=== PATIENT | female | born 1975 | race Caucasian/White ===

== ENCOUNTER 2022-06-28 11:23 | Inpatient (IN) | payer BC ==
[2022-06-28] MEDS ORDERED: SODIUM CHLORIDE 0.9% 500 ML 500 ML IV STA (12:29)
[2022-06-28] MEDS ORDERED: SODIUM CHLORIDE 0.9% 1,000 ML IV STA (12:29)
[2022-06-28 12:53] LABS: Basophils # (A) 0.1 k/uL (0-0.2); Basophils % (A) 0 %; Eosinophils # (A) 0.2 k/uL (0-0.7); Eosinophils % (A) 1 %; HCT 37.1 % (34.0-46.0); HGB 12.1 gm/dL (11.4-16.0); Hypochromasia Slight; Lymphocytes # (A) 1.7 k/uL (1.0-4.8); Lymphocytes % (A) 9 %; MCH 26.4 pg (25.0-35.0); MCHC 32.5 g/dL (31.0-37.0); MCV 81.2 fL (80.0-100.0); Mean Platelet Volume 8.7; Monocytes # (A) 1.3 k/uL (0-1.0); Monocytes % (A) 7 %; Neutrophils # (A) 15.4 k/uL (1.3-7.7); Neutrophils % (A) 81 %; Platelet Count 236 k/uL (150-450); RBC 4.57 m/uL (3.80-5.40); RDW 14.1 % (11.5-15.5)
[2022-06-28 13:07] LABS: Appearance,Urine Cloudy (Clear); Bacteria,Urine Moderate /hpf; Bilirubin,Urine Negative (Negative); Blood,Urine Small (Negative); Color,Urine Yellow; Glucose,Urine (UA) Negative (Negative); Hyaline Casts,Urine 24 /lpf (0-2); Ketones,Urine Negative (Negative); Leukocyte Esterase,Urine Negative (Negative); Mucus,Urine Many /hpf; Nitrite,Urine Negative (Negative); Protein,Urine 1+ (Negative); RBC,Urine 2 /hpf (0-5); Specific Gravity,Urine 1.024 (1.001-1.035); Squamous Epithelial Cell,Urine 2 /hpf (0-4); Urobilinogen,Urine <2.0 mg/dL (<2.0); WBC,Urine 4 /hpf (0-5)
[2022-06-28 13:09] LABS: ALT 17 U/L (4-34); AST 31 U/L (14-36); African American GFR (CKD) >90 (>60 ml/min/1.73 sqM); Albumin 4.2 g/dL (3.5-5.0); Alkaline Phosphatase 57 U/L (38-126); Amylase 30 U/L (30-110); Anion Gap 9 mmol/L; Blood Urea Nitrogen 7 mg/dL (7-17); Calcium 8.3 mg/dL (8.4-10.2); Carbon Dioxide 21 mmol/L (22-30); Chloride 106 mmol/L (98-107); Glucose 125 mg/dL (74-99); Lipase 35 U/L (23-300); Non-African American GFR(CKD) >90 (>60 ml/min/1.73 sqM); Sodium 136 mmol/L (137-145); Total Bilirubin 1.4 mg/dL (0.2-1.3); Total Protein 7.7 g/dL (6.3-8.2)
[2022-06-28 13:10] LABS: Potassium 4.3 mmol/L (3.5-5.1)
--- NOTE | 2022-06-28 14:05 | CT ---
EXAMINATION TYPE: CT abdomen pelvis w con CT DLP: 2207.8 mGycm, Automated exposure control for dose reduction was used. DATE OF EXAM: 06/28/2022 1:45 PM COMPARISON: None. CLINICAL INDICATION:Female, 47 years old with history of Recent diverticulitis with perforation; h/o diverticulitis left side pain TECHNIQUE: Standard CT of the abdomen and pelvis following the administration of 100 cc of Isovue 3 00 IV contrast material. Coronal and sagittal reformats were performed. FINDINGS: LOWER CHEST: Unremarkable ABDOMEN LIVER: Unremarkable GALLBLADDER AND BILE DUCTS: The gallbladder is surgically absent. No biliary duct dilatation. PANCREAS: Unremarkable. SPLEEN: Mild splenomegaly measuring 14.4 cm in AP dimension. ADRENAL GLANDS: Unremarkable. KIDNEYS AND URETERS: No evidence of hydronephrosis or renal calculus. The kidneys enhance symmetrical ly. PELVIS BLADDER: Incompletely distended but grossly unremarkable. REPRODUCTIVE: Unremarkable anteverted uterus. Haziness with surrounding fat stranding involving the l eft ovary which is likely reactive to the diverticulitis. ABDOMEN & PELVIS STOMACH AND BOWEL: Stomach and duodenum are unremarkable. There is wall thickening with surrounding f at stranding involving the sigmoid colon and single focus of extraluminal paracolonic gas (series 201 , image 69). Questionable small diverticula of the sigmoid colon. No definitive pericolonic abscess. The appendix is within normal limits. No evidence of bowel obstruction. PERITONEUM: No evidence of free fluid. VASCULATURE: No evidence of aortic aneurysm. MUSCULOSKELETAL: No acute osseous abnormalities LYMPH NODES: No gross evidence for lymphadenopathy. SOFT TISSUE/ABDOMINAL WALL: Unremarkable IMPRESSION: 1. Acute sigmoid diverticulitis/colitis with focal contained perforation. No definitive paracolic ab scess. 2. Mild splenomegaly. Findings called to and discussed with Dr. Elijah Dewitt at 2:01 PM on 06/28/2022.
[2022-06-28] MEDS ORDERED: metroNIDAZOLE-NS PMX 500 MG in SALINE 1 100ML.BAG IVPB STA (14:06)
[2022-06-28] MEDS ORDERED: LEVOFLOXACIN 750MG-D5W PMX 750 MG in DEXTROSE/WATER 1 150ML.BAG IVPB STA (14:06)
[2022-06-28] MEDS ORDERED: ONDANSETRON 4 MG/2 ML VIAL IVP PRN (14:14)
[2022-06-28] MEDS ORDERED: NALOXONE 0.4 MG/ML 1 ML VIAL IV PRN (14:14)
[2022-06-28] MEDS ORDERED: HYDROmorphone 0.5 MG/0.5 ML SYRINGE IVP PRN (14:14)
--- NOTE | 2022-06-28 14:14 | ED ---
Abdominal Pain HPI - General Chief Complaint: Abdominal Pain Stated Complaint: Diverticulitis Time Seen by Provider: 06/28/22 12:06 Source: patient, RN notes reviewed Mode of arrival: ambulatory Limitations: no limitations - History of Present Illness Initial Comments: 47-year-old female presents emergency Department chief complaint of abdominal pain. Patient states that it started in left lower quadrant. Patient does admit that several months ago she had an infection diverticulitis which was hospitalized for. Patient states pain started last couple days the pain is getting worse. Patient admits slight nausea and diarrhea. States that she did not eat much last 24 hours. - Related Data Home Medications Medication Instructions Recorded Confirmed Multivitamins, Thera [Multivitamin 1 tab PO DAILY 06/28/22 06/28/22 (formulary)] Allergies Allergy/AdvReac Type Severity Reaction Status Date / Time amoxicillin [From Augmentin] Allergy Rash/Hives Verified 06/28/22 13:04 clavulanic acid Allergy Rash/Hives Verified 06/28/22 13:04 [From Augmentin] cookie Allergy Swelling Verified 06/28/22 13:04 mouth & mouth sores Review of Systems ROS Statement: Those systems with pertinent positive or pertinent negative responses have been documented in the HPI. ROS Other: All systems not noted in ROS Statement are negative. Past Medical History Additional Past Medical History / Comment(s): diverticulits History of Any Multi-Drug Resistant Organisms: None Reported Additional Past Surgical History / Comment(s): perferated diverticuli Past Psychological History: No Psychological Hx Reported Smoking Status: Never smoker Past Alcohol Use History: Occasional Past Drug Use History: None Reported General Exam Limitations: no limitations General appearance: alert, in no apparent distress Head exam: Present: atraumatic, normocephalic, normal inspection Eye exam: Present: normal appearance, PERRL, EOMI. Absent: scleral icterus, conjunctival injection, periorbital swelling ENT exam: Present: normal exam, mucous membranes moist Neck exam: Present: normal inspection, full ROM. Absent: tenderness, meningismus, lymphadenopathy Respiratory exam: Present: normal lung sounds bilaterally. Absent: respiratory distress, wheezes, rales, rhonchi, stridor Cardiovascular Exam: Present: regular rate, normal rhythm, normal heart sounds. Absent: systolic murmur, diastolic murmur, rubs, gallop, clicks GI/Abdominal exam: Present: soft, tenderness (Moderate left lower quadrant), normal bowel sounds. Absent: distended, guarding, rebound, rigid Course Vital Signs 06/28/22 11:48 Temperature 98.4 F Pulse Rate 86 Respiratory 17 Rate Blood Pressure 131/84 O2 Sat by Pulse 99 Oximetry Medical Decision Making - Medical Decision Making CT interpreted by me and read by radiologist shows evidence of contain perforation of diverticulitis. I did discuss the case with Dr. Mayen who accepts admission started on IV antibiotics IV fluids pain control antiemetics. - Lab Data Result diagrams: 06/28/22 12:41 06/28/22 12:41 Lab Results 06/28/22 06/28/22 06/28/22 Range/Units 12:41 12:41 12:41 WBC 19.0 H (3.8-10.6) k/uL RBC 4.57 (3.80-5.40) m/uL Hgb 12.1 (11.4-16.0) gm/dL Hct 37.1 (34.0-46.0) % MCV 81.2 (80.0-100.0) fL MCH 26.4 (25.0-35.0) pg MCHC 32.5 (31.0-37.0) g/dL RDW 14.1 (11.5-15.5) % Plt Count 236 (150-450) k/uL MPV 8.7 Neutrophils % 81 % Lymphocytes % 9 % Monocytes % 7 % Eosinophils % 1 % Basophils % 0 % Neutrophils # 15.4 H (1.3-7.7) k/uL Lymphocytes # 1.7 (1.0-4.8) k/uL Monocytes # 1.3 H (0-1.0) k/uL Eosinophils # 0.2 (0-0.7) k/uL Basophils # 0.1 (0-0.2) k/uL Hypochromasia Slight Sodium 136 L (137-145) mmol/L Potassium 4.3 (3.5-5.1) mmol/L Chloride 106 (98-107) mmol/L Carbon Dioxide 21 L (22-30) mmol/L Anion Gap 9 mmol/L BUN 7 (7-17) mg/dL Creatinine 0.51 L (0.52-1.04) mg/dL Est GFR (CKD-EPI)AfAm >90 (>60 ml/min/1.73 sqM) Est GFR (CKD-EPI)NonAf >90 (>60 ml/min/1.73 sqM) Glucose 125 H (74-99) mg/dL Plasma Lactic Acid Ant 0.9 (0.7-2.0) mmol/L Calcium 8.3 L (8.4-10.2) mg/dL Total Bilirubin 1.4 H (0.2-1.3) mg/dL AST 31 (14-36) U/L ALT 17 (4-34) U/L Alkaline Phosphatase 57 (38-126) U/L Total Protein 7.7 (6.3-8.2) g/dL Albumin 4.2 (3.5-5.0) g/dL Amylase 30 (30-110) U/L Lipase 35 (23-300) U/L Urine Color Urine Appearance (Clear) Urine pH (5.0-8.0) Ur Specific [place] (1.001-1.035) Urine Protein (Negative) Urine Glucose (UA) (Negative) Urine Ketones (Negative) Urine Blood (Negative) Urine Nitrite (Negative) Urine Bilirubin (Negative) Urine Urobilinogen (<2.0) mg/dL Ur Leukocyte Esterase (Negative) Urine RBC (0-5) /hpf Urine WBC (0-5) /hpf Ur Squamous Epith Cells (0-4) /hpf Urine Bacteria (None) /hpf Hyaline Casts (0-2) /lpf Urine Mucus (None) /hpf 06/28/ Range/Units 12:41 WBC (3.8-10.6) k/uL RBC (3.80-5.40) m/uL Hgb (11.4-16.0) gm/dL Hct (34.0-46.0) % MCV (80.0-100.0) fL MCH (25.0-35.0) pg MCHC (31.0-37.0) g/dL RDW (11.5-15.5) % Plt Count (150-450) k/uL MPV Neutrophils % % Lymphocytes % % Monocytes % % Eosinophils % % Basophils % % Neutrophils # (1.3-7.7) k/uL Lymphocytes # (1.0-4.8) k/uL Monocytes # (0-1.0) k/uL Eosinophils # (0-0.7) k/uL Basophils # (0-0.2) k/uL Hypochromasia Sodium (137-145) mmol/L Potassium (3.5-5.1) mmol/L Chloride (98-107) mmol/L Carbon Dioxide (22-30) mmol/L Anion Gap mmol/L BUN (7-17) mg/dL Creatinine (0.52-1.04) mg/dL Est GFR (CKD-EPI)AfAm (>60 ml/min/1.73 sqM) Est GFR (CKD-EPI)NonAf (>60 ml/min/1.73 sqM) Glucose (74-99) mg/dL Plasma Lactic Acid Ant (0.7-2.0) mmol/L Calcium (8.4-10.2) mg/dL Total Bilirubin (0.2-1.3) mg/dL AST (14-36) U/L ALT (4-34) U/L Alkaline Phosphatase (38-126) U/L Total Protein (6.3-8.2) g/dL Albumin (3.5-5.0) g/dL Amylase (30-110) U/L Lipase (23-300) U/L Urine Color Yellow Urine Appearance Cloudy H (Clear) Urine pH 6.0 (5.0-8.0) Ur Specific [place] 1.024 (1.001-1.035) Urine Protein 1+ H (Negative) Urine Glucose (UA) Negative (Negative) Urine Ketones Negative (Negative) Urine Blood Small H (Negative) Urine Nitrite Negative (Negative) Urine Bilirubin Negative (Negative) Urine Urobilinogen <2.0 (<2.0) mg/dL Ur Leukocyte Esterase Negative (Negative) Urine RBC 2 (0-5) /hpf Urine WBC 4 (0-5) /hpf Ur Squamous Epith Cells 2 (0-4) /hpf Urine Bacteria Moderate H (None) /hpf Hyaline Casts 24 H (0-2) /lpf Urine Mucus Many H (None) /hpf Disposition Clinical Impression: Perforation of sigmoid colon due to diverticulitis Disposition: ADMITTED IP TO THIS HOSP Condition: Fair Referrals: Jigar Dumont MD [Primary Care Provider] - 1-2 days Time of Disposition: 14:03
[2022-06-28] MEDS: SODIUM CHLORIDE 0.9% 1,000 ML IV SCH ×2 (14:37→20:19)
--- NOTE | 2022-06-28 15:51 | P.GSHP ---
History of Present Illness H&P Date: 06/28/22 CHIEF COMPLAINT: Left lower quadrant abdominal pain HISTORY OF PRESENT ILLNESS: This is a 47-year-old female who presented with left lower quadrant abdominal pain that started Monday evening. Patient does have a known history of diverticulitis with previous perforation 8 months ago. She was hospitalized at [facility]. She received antibiotics. No surgical intervention was warranted. She had a colonoscopy in December that did show diverticulosis. Patient reports that again she had similar pain as her previous episodes of diverticulitis. She put herself on clear liquids. However pain continued. Computed tomography scan of the abdomen and pelvis shows diverticulitis with contained focal perforation. White count elevated at 19. She denies any fevers. Past surgical history includes cholecystectomy and C- section. Patient seen and examined with Dr. alcantara PAST MEDICAL HISTORY: See below PAST SURGICAL HISTORY: See below MEDICATIONS: See below ALLERGIES: See below SOCIAL HISTORY: No illicit drug use. REVIEW OF SYSTEMS: CONSTITUTIONAL: Denies fever or chills. HEENT: Denies blurred vision, vision changes, or eye pain. Denies hemoptysis CARDIOVASCULAR: Denies chest pain or pressure. RESPIRATORY: No shortness of breath. GASTROINTESTINAL: See HPI for pertinent findings HEMATOLOGIC: Denies bleeding disorders. GENITOURINARY: Denies any blood in urine or increased urinary frequency. SKIN: Denies pruitis. Denies rash. PHYSICAL EXAM: VITAL SIGNS: Reviewed GENERAL: Well-developed in no acute distress. HEENT: No sclera icterus. Extraocular movements grossly intact. Moist buccal mucosa. Head is atraumatic, normocephalic. No nasal drainage. ABDOMEN: Soft. Nondistended. Tenderness to palpation left lower quadrant NEUROLOGIC: Alert and oriented. Cranial nerves II through XII grossly intact. LABORATORY DATA: WBC is 19 Hgb 12.1 platelets 236 Sodium is 136 potassium 4.3 creatinine 0.51 Lactic acid 0.9 total bili 1.4 AST 31 ALT 17 alk phos 57 lipase 35 IMAGING: Computed tomography scan abdomen and pelvis acute sigmoid diverticulitis/colitis with focal contained perforation. No definitive paracolic abscess. Mild splenomegaly. ASSESSMENT: 1. Acute sigmoid diverticulitis with focal contained perforation PLAN: -Keep patient nothing by mouth -Continue IV antibiotics -Continue IV fluids -Repeat CBC in a.m. -Continue supportive care -Continue pain medication as needed -GI prophylaxis Protonix and DVT prophylaxis subcu heparin Physician Non Acoustic Operator note has been reviewed by physician. Signing provider agrees with the documented findings, assessment, and plan of care. Past Medical History Additional Past Medical History / Comment(s): diverticulits History of Any Multi-Drug Resistant Organisms: None Reported Additional Past Surgical History / Comment(s): perferated diverticuli Past Psychological History: No Psychological Hx Reported Smoking Status: Never smoker Past Alcohol Use History: Occasional Past Drug Use History: None Reported Medications and Allergies Home Medications Medication Instructions Recorded Confirmed Type Multivitamins, Thera [Multivitamin 1 tab PO DAILY 06/28/22 06/28/22 History (formulary)] Allergies Allergy/AdvReac Type Severity Reaction Status Date / Time amoxicillin [From Augmentin] Allergy Rash/Hives Verified 06/28/22 13:04 clavulanic acid Allergy Rash/Hives Verified 06/28/22 13:04 [From Augmentin] cookie Allergy Swelling Verified 06/28/22 13:04 mouth & mouth sores Surgical - Exam Vital Signs Temp Pulse Resp BP Pulse Ox 98.4 F 86 17 131/84 99 06/28/22 11:48 06/28/22 11:48 06/28/22 11:48 06/28/22 11:48 06/28/22 11:48 Results - Labs 06/28/22 12:41 06/28/22 12:41 Abnormal Lab Results - Last 24 Hours (Table) 06/28/22 06/28/22 06/28/22 Range/Units 12:41 12:41 12:41 WBC 19.0 H (3.8-10.6) k/uL Neutrophils # 15.4 H (1.3-7.7) k/uL Monocytes # 1.3 H (0-1.0) k/uL Sodium 136 L (137-145) mmol/L Carbon Dioxide 21 L (22-30) mmol/L Creatinine 0.51 L (0.52-1.04) mg/dL Glucose 125 H (74-99) mg/dL Calcium 8.3 L (8.4-10.2) mg/dL Total Bilirubin 1.4 H (0.2-1.3) mg/dL Urine Appearance Cloudy H (Clear) Urine Protein 1+ H (Negative) Urine Blood Small H (Negative) Urine Bacteria Moderate H (None) /hpf Hyaline Casts 24 H (0-2) /lpf Urine Mucus Many H (None) /hpf Diabetes panel 06/28/22 Range/Units 12:41 Sodium 136 L (137-145) mmol/L Potassium 4.3 (3.5-5.1) mmol/L Chloride 106 (98-107) mmol/L Carbon Dioxide 21 L (22-30) mmol/L BUN 7 (7-17) mg/dL Creatinine 0.51 L (0.52-1.04) mg/dL Glucose 125 H (74-99) mg/dL Calcium 8.3 L (8.4-10.2) mg/dL AST 31 (14-36) U/L ALT 17 (4-34) U/L Alkaline Phosphatase 57 (38-126) U/L Total Protein 7.7 (6.3-8.2) g/dL Albumin 4.2 (3.5-5.0) g/dL Calcium panel 06/28/22 Range/Units 12:41 Calcium 8.3 L (8.4-10.2) mg/dL Albumin 4.2 (3.5-5.0) g/dL Pituitary panel 06/28/22 Range/Units 12:41 Sodium 136 L (137-145) mmol/L Potassium 4.3 (3.5-5.1) mmol/L Chloride 106 (98-107) mmol/L Carbon Dioxide 21 L (22-30) mmol/L BUN 7 (7-17) mg/dL Creatinine 0.51 L (0.52-1.04) mg/dL Glucose 125 H (74-99) mg/dL Calcium 8.3 L (8.4-10.2) mg/dL Adrenal panel 06/28/22 Range/Units 12:41 Sodium 136 L (137-145) mmol/L Potassium 4.3 (3.5-5.1) mmol/L Chloride 106 (98-107) mmol/L Carbon Dioxide 21 L (22-30) mmol/L BUN 7 (7-17) mg/dL Creatinine 0.51 L (0.52-1.04) mg/dL Glucose 125 H (74-99) mg/dL Calcium 8.3 L (8.4-10.2) mg/dL Total Bilirubin 1.4 H (0.2-1.3) mg/dL AST 31 (14-36) U/L ALT 17 (4-34) U/L Alkaline Phosphatase 57 (38-126) U/L Total Protein 7.7 (6.3-8.2) g/dL Albumin 4.2 (3.5-5.0) g/dL
[2022-06-28] MEDS: metroNIDAZOLE-NS PMX 500 MG in SALINE 1 100ML.BAG IVPB SCH (22:22)
[2022-06-28] MEDS: HEPARIN SODIUM,PORCINE/PF 5,000 UNIT/0.5 ML SYRINGE SQ SCH (22:23)
[2022-06-29] MEDS: SODIUM CHLORIDE 0.9% 1,000 ML IV SCH ×2 (04:52→15:44)
[2022-06-29] MEDS: metroNIDAZOLE-NS PMX 500 MG in SALINE 1 100ML.BAG IVPB SCH ×3 (04:54→22:32)
[2022-06-29] MEDS ORDERED: LEVOFLOXACIN 500MG-D5W PMX 500 MG in DEXTROSE/WATER 1 100ML.BAG IVPB SCH (09:00)
[2022-06-29] MEDS: HEPARIN SODIUM,PORCINE/PF 5,000 UNIT/0.5 ML SYRINGE SQ SCH ×2 (09:17→20:32)
[2022-06-29] MEDS: ACETAMINOPHEN IV (For NPO) 1,000 MG in EMPTY BAG 1 BAG IVPB PRN ×2 (09:17→23:40)
[2022-06-29] MEDS: PANTOPRAZOLE 40 MG/10 ML VIAL IVP SCH (09:18)
[2022-06-29 10:25] LABS: Basophils # (A) 0.05 X 10*3/uL (0.00-0.10); Basophils % (A) 0.5 %; Eosinophils # (A) 0.17 X 10*3/uL (0.04-0.35); Eosinophils % (A) 1.6 %; HCT 33.1 % (37.2-46.3); HGB 10.1 g/dL (12.0-15.0); Immature Grans, Automated 0.6 %; Lymphocytes # (A) 1.31 X 10*3/uL (0.90-5.00); Lymphocytes % (A) 12.5 %; MCH 25.4 pg (27.0-32.0); MCHC 30.5 g/dL (32.0-37.0); MCV 83.4 fL (80.0-97.0); Mean Platelet Volume 11.1 fL (9.5-12.2); Monocytes % (A) 12.4 %; NRBC Per 100 WBC 0 /100 WBCS (0.0-0.0); Neutrophils # (A) 7.58 X 10*3/uL (1.80-7.70); Neutrophils % (A) 72.4 %; Platelet Count 188 X 10*3/uL (140-440); RBC 3.97 X 10*6/uL (4.10-5.20); RDW 14.1 % (11.5-14.5); WBC 10.47 X 10*3/uL (4.50-10.00)
[2022-06-29 10:26] LABS: African American GFR (CKD) 135.5 (60.0-200.0); Anion Gap 10.1 mmol/L (10.00-18.00); BUN/Creat Ratio 10.4 Ratio (12.00-20.00); Blood Urea Nitrogen 5.2 mg/dL (9.0-27.0); Calcium 7.9 mg/dL (8.7-10.3); Carbon Dioxide 21.9 mmol/L (20.0-27.5); Non-African American GFR(CKD) 116.9 (60.0-200.0); Potassium 3.6 mmol/L (3.5-5.5)
--- NOTE | 2022-06-29 12:42 | CONS ---
CONSULTATION REASON FOR CONSULTATION: Advice regarding diverticulitis and other medical issues requested by Orthopedic Surgery. HISTORY OF PRESENT ILLNESS: This is a 47-year-old woman with a past medical history of diverticulitis, admitted with left lower quadrant abdominal pain. The pain started on Monday evening and the patient had diverticulitis perforation about 8 months ago and was treated from [facility], currently a contained perforation was noted and sigmoid diverticulitis with focal contained perforation. Surgery is following the patient. Patient started on IV antibiotics. There is no history of any fever, rigors, or chills at this time. PAST MEDICAL HISTORY: Diverticulitis, rest of the history and rest of the chart is reviewed. HOME MEDICATIONS: Reviewed include multivitamins. ALLERGIES: Reviewed include Augmentin, rest of the allergies noted. FAMILY HISTORY: No history of heart disease or strokes in the family. SOCIAL HISTORY: No history of smoking, occasional alcohol intake. REVIEW OF SYSTEMS: A 14-point review is negative except as mentioned earlier. PHYSICAL EXAMINATION: VITAL SIGNS: Pulse 76, blood pressure 130/90, and respirations 19. HEENT: Conjunctivae normal. NECK: No jugular venous distention. CARDIOVASCULAR: S1, S2. RESPIRATIONS: Diminished at the bases. No rhonchi, no crackles. ABDOMEN: Soft, mild diffuse tenderness. No guarding, no rigidity. No masses palpable. LEGS: No edema. No swelling. NERVOUS SYSTEM: No focal deficit. LABS: WBC 19 and 10.47. Rest of the labs are noted. ASSESSMENT: 1. Acute sigmoid diverticulitis with contained perforation. 2. Increased WBC. 3. Hyponatremia, mild. RECOMMENDATIONS: This is a 47-year-old woman who presented with multiple medical issues, we will monitor the patient closely. Continue the current medications and continue symptomatic treatment, otherwise broad-spectrum IV antibiotics. Monitor closely. IV fluids. Repeat labs. We will follow the patient closely and DVT prophylaxis. Further recommendations to follow. Overall prognosis guarded. MMODL / IJN: [id number] /
[2022-06-29] MEDS: CEFEPIME 2 GM in SODIUM CHLORIDE 0.9% 100 ML IVPB SCH ×2 (12:58→20:32)
--- NOTE | 2022-06-29 13:20 | P.PN ---
Subjective Progress Note Date: 06/29/22 CHIEF COMPLAINT: Diverticulitis with focal contained perforation HISTORY OF PRESENT ILLNESS: Patient reports that she is feeling better today. She reports decrease in her left lower quadrant pain. She is complaining of a headache. She did have a bowel movement. Denies any blood in the stools. Denies any nausea vomiting. Afebrile. White count did decrease from 19-10.47. hgb 10.1 Sodium is 140 potassium is 3.6 creatinine 0.5 PHYSICAL EXAM: VITAL SIGNS: Reviewed. GENERAL: Well-developed in no acute distress. HEENT: No sclera icterus. Extraocular movements grossly intact. Moist buccal mucosa. Head is atraumatic, normocephalic. ABDOMEN: Soft. Nondistended. Tenderness left lower quadrant palpation NEUROLOGIC: Alert and oriented. Cranial nerves II through XII grossly intact. ASSESSMENT: 1. Acute sigmoid diverticulitis with focal contained perforation 2. History of diverticulitis with microperforation about 8 months ago PLAN: -Advance diet to clear liquids -Antibiotics adjusted per infectious disease -Continue IV fluids -Tylenol added for headache -GI prophylaxis Protonix and DVT prophylaxis subcu heparin Physician Mining Teacher note has been reviewed by physician. Signing provider agrees with the documented findings, assessment, and plan of care. Objective - Vital Signs Vital signs: Vital Signs Temp 98.2 F 06/29/22 08:00 Pulse 76 06/29/22 08:00 Resp 19 06/29/22 08:00 BP 133/90 06/29/22 08:00 Pulse Ox 98 06/29/22 08:00 FiO2 Intake & Output 06/28/22 06/29/22 06/29/22 18:59 06:59 18:59 Intake Total 2110 Balance 2110 Weight 115.666 kg 115.666 kg Intake: Intake, IV Titration 1630 Amount Sodium Chloride 0.9% 1, 1430 000 ml @ 130 mls/hr IV . Q7H42M ROSA Rx#:[id number] metroNIDAZOLE-NS PMX 500 200 mg In Saline 1 100ml.bag @ 100 mls/hr IVPB Q8H ROSA Rx#:[id number] Oral 480 Other: # Voids 2 - Labs CBC & Chem 7: 06/29/22 06:49 06/29/22 06:49 Labs: Abnormal Lab Results - Last 24 Hours (Table) 06/29/22 06/29/22 Range/Units 06:49 06:49 WBC 10.47 H (4.50-10.00) X 10*3/uL RBC 3.97 L (4.10-5.20) X 10*6/uL Hgb 10.1 L (12.0-15.0) g/dL Hct 33.1 L (37.2-46.3) % MCH 25.4 L (27.0-32.0) pg MCHC 30.5 L (32.0-37.0) g/dL Immature Gran # 0.06 H (0.00-0.04) X 10*3/uL Monocytes # 1.30 H (0.20-1.00) X 10*3/uL BUN 5.2 L (9.0-27.0) mg/dL Creatinine 0.5 L (0.6-1.5) mg/dL BUN/Creatinine Ratio 10.40 L (12.00-20.00) Ratio Calcium 7.9 L (8.7-10.3) mg/dL
--- NOTE | 2022-06-29 23:03 | P.CONS ---
History of Present Illness - Reason for Consult Consult date: 06/29/22 Diverticulitis Requesting physician: Bailey Bowman - Chief Complaint Abdominal pain x few days - History of Present Illness Patient is a 47-year-old female with a past medical history significant for an episode of diverticulitis about 8 months ago for the patient was admitted to hospital for 2 days and was subsequently discharged home on oral antibiotics patient did mention that she did subsequently follow-up with GI and she did have a colonoscopy with evidence of diverticulosis and the patient mention she was trying to have a high-fiber diet but noncompliant with the Metamucil that was recommended by the GI patient now presenting to [facility] on ER yesterday afternoon for evaluation of abdominal pain that apparently has been getting worse for the last few days patient described the pain to be sharp intensity is almost 8 out of 10 and no radiation has felt nauseated but no vomiting and denies having any diarrhea or significant constipation patient mention some chills but did not take her temperature with the symptom the patient was evaluated by the ER physician on arrival to the ER patient was afebrile and no fever has been recorded subsequently patient did have white count of 19,000 with a left shift kidney function has been normal liver enzymes are normal urine was negative patient did have a CT abdominal pelvis which shows acute mild diverticulitis with focal contained perforation no definite paracolic abscess patient was started on Levaquin and Flagyl because of her Augmentin allergy infectious disease was consulted for further management of antibiotic therapy Review of Systems Positive point has been mentioned in the HPI rest of the systems are negative Past Medical History Additional Past Medical History / Comment(s): diverticulits History of Any Multi-Drug Resistant Organisms: None Reported Additional Past Surgical History / Comment(s): perferated diverticuli Past Anesthesia/Blood Transfusion Reactions: No Reported Reaction Past Psychological History: No Psychological Hx Reported Smoking Status: Never smoker Past Alcohol Use History: Occasional Past Drug Use History: None Reported Medications and Allergies Home Medications Medication Instructions Recorded Confirmed Type Multivitamins, Thera [Multivitamin 1 tab PO DAILY 06/28/22 06/28/22 History (formulary)] cefUROXime axetiL [Ceftin] 500 mg PO BID 14 Days #28 tab 07/01/22 Rx metroNIDAZOLE [Flagyl] 500 mg PO TID #42 tab 07/01/22 Rx Allergies Allergy/AdvReac Type Severity Reaction Status Date / Time amoxicillin [From Augmentin] Allergy Rash/Hives Verified 06/28/22 13:04 clavulanic acid Allergy Rash/Hives Verified 06/28/22 13:04 [From Augmentin] cookie Allergy Swelling Verified 06/28/22 13:04 mouth & mouth sores Physical Exam Vitals: Vital Signs Temp Pulse Pulse Resp BP BP Pulse Ox 06/29/22 08:00 98.2 F 76 19 133/90 98 06/29/22 02:00 98.5 F 85 16 146/78 99 06/28/22 20:00 98.4 F 87 18 134/88 97 06/28/22 19:11 85 18 128/79 99 06/28/22 14:15 84 18 133/82 100 06/28/22 11:48 98.4 F 86 17 131/84 99 Intake and Output 06/28/22 06/29/22 06/29/22 22:59 06:59 14:59 Intake Total 2110 Balance 2110 Intake: Intake, IV Titration 1630 Amount Sodium Chloride 0.9% 1, 1430 000 ml @ 130 mls/hr IV . Q7H42M [facility] Rx#:[id number] metroNIDAZOLE-NS PMX 500 200 mg In Saline 1 100ml.bag @ 100 mls/hr IVPB Q8H [facility] Rx#:[id number] Oral 480 Other: # Voids 2 Weight 115.666 kg GENERAL DESCRIPTION: Middle-aged female up in the chair, no distress. No tachypnea or accessory muscle of respiration use. HEENT: Shows Pallor , no scleral icterus. Oral mucous membrane is dry. No pharyngeal erythema or thrush NECK: Trachea central, no thyromegaly. LUNGS: Unlabored breathing. Clear to auscultation anteriorly. No wheeze or crackle. HEART: S1, S2, regular rate and rhythm. No loud murmur ABDOMEN: Soft, mild left-sided tenderness , no guarding or rigidity, no organome zeus EXTREMITIES: No edema of feet. SKIN: No rash, no masses palpable. NEUROLOGICAL: The patient is awake, alert, oriented x3, mood and affect normal. Results CBC & Chem 7: 07/01/22 06:15 06/30/22 06:42 Labs: Abnormal Lab Results - Last 24 Hours (Table) 06/28/22 06/28/2206/28/22 Range/Units 12:41 12:41 12:41 WBC 19.0 H (3.8-10.6) k/uL RBC (4.10-5.20) X 10*6/uL Hgb (12.0-15.0) g/dL Hct (37.2-46.3) % MCH (27.0-32.0) pg MCHC (32.0-37.0) g/dL Immature Gran # (0.00-0.04) X 10*3/uL Neutrophils # 15.4 H (1.3-7.7) k/uL Monocytes # 1.3 H (0-1.0) k/uL Sodium 136 L (137-145) mmol/L Carbon Dioxide 21 L (22-30) mmol/L BUN (9.0-27.0) mg/dL Creatinine 0.51 L (0.52-1.04) mg/dL BUN/Creatinine Ratio (12.00-20.00) Ratio Glucose 125 H (74-99) mg/dL Calcium 8.3 L (8.4-10.2) mg/dL Total Bilirubin 1.4 H (0.2-1.3) mg/dL Urine Appearance Cloudy H (Clear) Urine Protein 1+ H (Negative) Urine Blood Small H (Negative) Urine Bacteria Moderate H (None) /hpf Hyaline Casts 24 H (0-2) /lpf Urine Mucus Many H (None) /hpf 06/29/22 06/29/22 Range/Units 06:49 06:49 WBC 10.47 H (3.8-10.6) k/uL RBC 3.97 L (4.10-5.20) X 10*6/uL Hgb 10.1 L (12.0-15.0) g/dL Hct 33.1 L (37.2-46.3) % MCH 25.4 L (27.0-32.0) pg MCHC 30.5 L (32.0-37.0) g/dL Immature Gran # 0.06 H (0.00-0.04) X 10*3/uL Neutrophils # (1.3-7.7) k/uL Monocytes # 1.30 H (0-1.0) k/uL Sodium (137-145) mmol/L Carbon Dioxide (22-30) mmol/L BUN 5.2 L (9.0-27.0) mg/dL Creatinine 0.5 L (0.52-1.04) mg/dL BUN/Creatinine Ratio 10.40 L (12.00-20.00) Ratio Glucose (74-99) mg/dL Calcium 7.9 L (8.4-10.2) mg/dL Total Bilirubin (0.2-1.3) mg/dL Urine Appearance (Clear) Urine Protein (Negative) Urine Blood (Negative) Urine Bacteria (None) /hpf Hyaline Casts (0-2) /lpf Urine Mucus (None) /hpf Assessment and Plan (1) Perforation of sigmoid colon due to diverticulitis Status: Acute Code(s): K57.20 - DVTRCLI OF LG INT W PERFORATION AND ABSCESS W/O BLEEDING SNOMED Code(s): 4787427440726557 Plan: 1patient presented to hospital with abdominal pain has been diagnosed with complicated diverticulitis with small contained perforation but no definite abscess will need to call for the enteric gram-negative both aerobes and anaerobes this being her second episode. 2patient with penicillin allergy that would limit the number of antibiotics safe to use. 3discontinue Levaquin and start the patient on cefepime and continue with the Flagyl. 4bowel rest. We will follow on clinical condition and cultures to further adjust medication if needed Thank you for this consultation will follow this patient along with you Time with Patient: Greater than 30
[2022-06-30] MEDS: CEFEPIME 2 GM in SODIUM CHLORIDE 0.9% 100 ML IVPB SCH ×3 (04:15→20:23)
[2022-06-30] MEDS: metroNIDAZOLE-NS PMX 500 MG in SALINE 1 100ML.BAG IVPB SCH ×3 (06:06→22:22)
[2022-06-30] MEDS: SODIUM CHLORIDE 0.9% 1,000 ML IV SCH ×2 (06:06→17:17)
[2022-06-30] MEDS: HEPARIN SODIUM,PORCINE/PF 5,000 UNIT/0.5 ML SYRINGE SQ SCH ×2 (08:24→20:24)
[2022-06-30] MEDS: PANTOPRAZOLE 40 MG/10 ML VIAL IVP SCH (08:24)
[2022-06-30 10:36] LABS: Basophils # (A) 0.04 X 10*3/uL (0.00-0.10); Basophils % (A) 0.4 %; Eosinophils # (A) 0.23 X 10*3/uL (0.04-0.35); Eosinophils % (A) 2.6 %; HCT 33.6 % (37.2-46.3); HGB 10.3 g/dL (12.0-15.0); Immature Grans, Automated 0.7 %; Lymphocytes # (A) 1.44 X 10*3/uL (0.90-5.00); MCH 25.5 pg (27.0-32.0); MCHC 30.7 g/dL (32.0-37.0); MCV 83.2 fL (80.0-97.0); Mean Platelet Volume 10.7 fL (9.5-12.2); Monocytes # (A) 1.13 X 10*3/uL (0.20-1.00); Monocytes % (A) 12.6 %; NRBC Per 100 WBC 0 /100 WBCS (0.0-0.0); Neutrophils # (A) 6.08 X 10*3/uL (1.80-7.70); Neutrophils % (A) 67.7 %; Platelet Count 199 X 10*3/uL (140-440); RBC 4.04 X 10*6/uL (4.10-5.20); RDW 14.1 % (11.5-14.5); WBC 8.98 X 10*3/uL (4.50-10.00)
[2022-06-30 10:53] LABS: Anion Gap 11.3 mmol/L (10.00-18.00); BUN/Creat Ratio 7.24 Ratio (12.00-20.00); Blood Urea Nitrogen 4.4 mg/dL (9.0-27.0); Calcium 8.3 mg/dL (8.7-10.3); Carbon Dioxide 23.1 mmol/L (20.0-27.5); Non-African American GFR(CKD) 109.5 (60.0-200.0); Potassium 3.6 mmol/L (3.5-5.5)
[2022-06-30] MEDS ORDERED: ACETAMINOPHEN TAB 325 MG TAB PO PRN (13:38)
--- NOTE | 2022-06-30 13:41 | P.PN ---
Subjective Progress Note Date: 06/30/22 CHIEF COMPLAINT: Diverticulitis with focal contained perforation HISTORY OF PRESENT ILLNESS: Patient reports decrease in her abdominal pain. She reports her pain is 0 or 1. She reports that she has some mild discomfort in the left lower quadrant after eating and it improves after bowel movement or flatus. Patient denies any nausea or vomiting. Afebrile. She is currently on a clear liquid diet. WBC 8.98 Hgb 10.3 platelet 199 PHYSICAL EXAM: VITAL SIGNS: Reviewed. GENERAL: Well-developed in no acute distress. HEENT: No sclera icterus. Extraocular movements grossly intact. Moist buccal mucosa. Head is atraumatic, normocephalic. ABDOMEN: Soft. Nondistended. Tenderness left lower quadrant palpation NEUROLOGIC: Alert and oriented. Cranial nerves II through XII grossly intact. ASSESSMENT: 1. Acute sigmoid diverticulitis with focal contained perforation 2. History of diverticulitis with microperforation about 8 months ago PLAN: -Advance diet to full liquids -Antibiotics adjusted per infectious disease -Continue IV fluids -Continue pain medication as needed -Possible discharge within the next 1-2 days -GI prophylaxis Protonix and DVT prophylaxis subcu heparin Physician [place] [employer] note has been reviewed by physician. Signing provider agrees with the documented findings, assessment, and plan of care. Objective - Vital Signs Vital signs: Vital Signs Temp 98.2 F 06/30/22 08:00 Pulse 70 06/30/22 08:00 Resp 16 06/30/22 08:00 BP 119/66 06/30/22 08:00 Pulse Ox 99 06/30/22 08:00 FiO2 Intake & Output 06/29/22 06/30/22 06/30/22 18:59 06:59 18:59 Other: Voiding Method Toilet # Voids 3 2 # Bowel Movements 1 - Labs CBC & Chem 7: 06/30/22 06:42 06/30/22 06:42 Labs: Abnormal Lab Results - Last 24 Hours (Table) 06/30/22 06/30/22 Range/Units 06:42 06:42 RBC 4.04 L (4.10-5.20) X 10*6/uL Hgb 10.3 L (12.0-15.0) g/dL Hct 33.6 L (37.2-46.3) % MCH 25.5 L (27.0-32.0) pg MCHC 30.7 L (32.0-37.0) g/dL Immature Gran # 0.06 H (0.00-0.04) X 10*3/uL Monocytes # 1.13 H (0.20-1.00) X 10*3/uL BUN 4.4 L (9.0-27.0) mg/dL BUN/Creatinine Ratio 7.24 L (12.00-20.00) Ratio Calcium 8.3 L (8.7-10.3) mg/dL Microbiology - Last 24 Hours (Table) 06/28/22 14:15 Blood Culture - Preliminary Blood No Growth after 24 hours 06/28/22 14:00 Blood Culture - Preliminary Blood No Growth after 24 hours
--- NOTE | 2022-06-30 15:18 | P.PN ---
Subjective Progress Note Date: 06/30/22 Principal diagnosis: Recurrent diverticulitis Patient is a 47-year-old female with a past medical history significant for an episode of diverticulitis about 8 months ago, treated medically subsequently did have colonoscopy with evidence of diverticulosis presenting to the hospital with another episode of diverticulitis and contained perforation with evidence of any abscess patient is ALLERGIC to Augmentin. On today's evaluation that is 06/30/2022, the patient denies having any fever or any chills. Abdominal pain has slightly decreased intensity still complaining of pain with oral intake and no nausea or vomiting and no chest pain shortness of breath or cough Objective - Vital Signs Vital signs: Vital Signs Temp 98.2 F 06/30/22 08:00 Pulse 70 06/30/22 08:00 Resp 16 06/30/22 08:00 BP 119/66 06/30/22 08:00 Pulse Ox 99 06/30/22 08:00 FiO2 Intake & Output 06/29/22 06/30/22 06/30/22 18:59 06:59 18:59 Other: Voiding Method Toilet # Voids 3 2 # Bowel Movements 1 - Exam GENERAL DESCRIPTION: A middle-aged female lying in bed in no distress RESPIRATORY SYSTEM: Unlabored breathing , decreased breath sounds at bases HEART: S1 S2 regular rate and rhythm , ABDOMEN: Soft , no tenderness EXTREMITIES: No edema feet - Labs CBC & Chem 7: 06/30/22 06:42 06/30/22 06:42 Labs: Abnormal Lab Results - Last 24 Hours (Table) 06/30/22 06/30/22 Range/Units 06:42 06:42 RBC 4.04 L (4.10-5.20) X 10*6/uL Hgb 10.3 L (12.0-15.0) g/dL Hct 33.6 L (37.2-46.3) % MCH 25.5 L (27.0-32.0) pg MCHC 30.7 L (32.0-37.0) g/dL Immature Gran # 0.06 H (0.00-0.04) X 10*3/uL Monocytes # 1.13 H (0.20-1.00) X 10*3/uL BUN 4.4 L (9.0-27.0) mg/dL BUN/Creatinine Ratio 7.24 L (12.00-20.00) Ratio Calcium 8.3 L (8.7-10.3) mg/dL Microbiology - Last 24 Hours (Table) 06/28/22 14:15 Blood Culture - Preliminary Blood No Growth after 24 hours 06/28/22 14:00 Blood Culture - Preliminary Blood No Growth after 24 hours Assessment and Plan (1) Perforation of sigmoid colon due to diverticulitis Current Visit: Yes Status: Acute Code(s): K57.20 - DVTRCLI OF LG INT W PERFORATION AND ABSCESS W/O BLEEDING SNOMED Code(s): 6507866155034014 Plan: 1patient presented to hospital with abdominal pain has been diagnosed with complicated diverticulitis with small contained perforation but no definite abscess will need to call for the enteric gram-negative both aerobes and anaerobes this being her second episode. 2patient with penicillin allergy that would limit the number of antibiotics safe to use. 3 patient to continue with cefepime and Flagyl along with bowel rest and monitor clinical course closely. Time with Patient: Less than 30
--- NOTE | 2022-06-30 15:27 | P.PN ---
Subjective This is a pleasant 47 years old female with past medical history of diverticulosis,. Presents with abdominal pain secondary to locally contained pe rforated diverticulitis of the sigmoid colon, currently has been followed by surgery primary team and infectious disease. And she's been covered with broad- spectrum antibiotics with cefepime and oral Flagyl, normal saline 75 L/h. Today patient was walking in her home appropriately with no difficulties eating improvement. She had 2 small bowel movement, her abdominal pain down to 4/10. No vomiting but she tolerates liquid diet although she developed some mild abdominal discomfort within 30 minutes after a meal. Patient looks satisfied and He was a progress she is making, patient states she anticipates to be discharged tomorrow. Patient denies any other complaints, and no urinary complaints, no chest pain or dyspnea, no headache weakness or numbness. BACK to normal today at 8.9, hemoglobin is stable at 10.3, BMP reviewed. Objective - Vital Signs Vital signs: Vital Signs Temp 98.2 F 06/30/22 08:00 Pulse 70 06/30/22 08:00 Resp 16 06/30/22 08:00 BP 119/66 06/30/22 08:00 Pulse Ox 99 06/30/22 08:00 FiO2 Intake & Output 06/29/22 06/30/22 06/30/22 18:59 06:59 18:59 Other: Voiding Method Toilet # Voids 3 2 # Bowel Movements 1 - Exam GENERAL: The patient is alert and oriented x3, not in any acute distress. Well d eveloped, well nourished. HEENT: Pupils are round and equally reacting to light. EOMI. No scleral icterus. No conjunctival pallor. Normocephalic, atraumatic. No pharyngeal erythema. No thyromegaly. CARDIOVASCULAR: S1 and S2 present. No murmurs, rubs, or gallops. PULMONARY: Chest is clear to auscultation, no wheezing or crackles. -ABDOMEN: Soft, mild LL acute tenderness, nondistended, normoactive bowel sounds. No palpable organomegaly. MUSCULOSKELETAL: No joint swelling or deformity. EXTREMITIES: No cyanosis, clubbing, or pedal edema. NEUROLOGICAL: Gross neurological examination did not reveal any focal deficits. SKIN: No rashes. no petechiae. - Labs CBC & Chem 7: 06/30/22 06:42 06/30/22 06:42 Labs: Abnormal Lab Results - Last 24 Hours (Table) 06/30/22 06/30/22 Range/Units 06:42 06:42 RBC 4.04 L (4.10-5.20) X 10*6/uL Hgb 10.3 L (12.0-15.0) g/dL Hct 33.6 L (37.2-46.3) % MCH 25.5 L (27.0-32.0) pg MCHC 30.7 L (32.0-37.0) g/dL Immature Gran # 0.06 H (0.00-0.04) X 10*3/uL Monocytes # 1.13 H (0.20-1.00) X 10*3/uL BUN 4.4 L (9.0-27.0) mg/dL BUN/Creatinine Ratio 7.24 L (12.00-20.00) Ratio Calcium 8.3 L (8.7-10.3) mg/dL Microbiology - Last 24 Hours (Table) 06/28/22 14:15 Blood Culture - Preliminary Blood No Growth after 24 hours 06/28/22 14:00 Blood Culture - Preliminary Blood No Growth after 24 hours Assessment and Plan Assessment: Locally contained perforated diverticulitis of the sigmoid colon, improving Obesity with BMI 42.4 Plan: continue with antibiotic, cefepime and oral Flagyl Continue with normal saline Advanced diet as tolerated per surgery team Surgical and infectious disease team R following the case closely Labs and medication were reviewed.. Continue same treatment. Continue with symptomatic treatment. Resume home medication. Monitor labs and vitals. DVT and GI prophylaxis. Further recommendations as per clinical course of the patient DVT prophylaxis: Subcutaneous heparin GI Prophylaxis: Ppi
[2022-06-30 20:15] VITALS: RESP 18
[2022-07-01] MEDS: CEFEPIME 2 GM in SODIUM CHLORIDE 0.9% 100 ML IVPB SCH ×2 (04:25→12:40)
[2022-07-01] MEDS: metroNIDAZOLE-NS PMX 500 MG in SALINE 1 100ML.BAG IVPB SCH ×2 (05:33→15:09)
[2022-07-01] MEDS: SODIUM CHLORIDE 0.9% 1,000 ML IV SCH (07:34)
[2022-07-01] MEDS: PANTOPRAZOLE 40 MG/10 ML VIAL IVP SCH (08:11)
[2022-07-01] MEDS: HEPARIN SODIUM,PORCINE/PF 5,000 UNIT/0.5 ML SYRINGE SQ SCH (08:12)
[2022-07-01 09:23] LABS: Basophils # (A) 0.1 k/uL (0-0.2); Basophils % (A) 2 %; Eosinophils # (A) 0.2 k/uL (0-0.7); Eosinophils % (A) 4 %; HCT 36.1 % (34.0-46.0); HGB 10.5 gm/dL (11.4-16.0); Hypochromasia Marked; Lymphocytes # (A) 1.2 k/uL (1.0-4.8); Lymphocytes % (A) 19 %; MCH 26.6 pg (25.0-35.0); Mean Platelet Volume 8.8; Monocytes # (A) 0.5 k/uL (0-1.0); Monocytes % (A) 8 %; Neutrophils % (A) 64 %; Platelet Count 202 k/uL (150-450); RBC 3.93 m/uL (3.80-5.40); WBC 6.3 k/uL (3.8-10.6)
[2022-07-01 09:24] LABS: MCV 91.8 fL (80.0-100.0)
--- NOTE | 2022-07-01 10:05 | P.PN ---
Subjective Progress Note Date: 07/01/22 Principal diagnosis: Diverticulitis Patient feels better today. Still has slight discomfort when eating. She is tolerating her diet. She is having bowel function. She is afebrile. White blood cell count normal. Objective - Vital Signs Vital signs: Vital Signs Temp 97.9 F 07/01/22 08:00 Pulse 77 07/01/22 08:00 Resp 18 07/01/22 08:00 BP 143/92 07/01/22 08:00 Pulse Ox 98 07/01/22 08:00 FiO2 Intake & Output 06/30/22 07/01/22 07/01/22 18:59 06:59 18:59 Intake Total 1080 Balance 1080 Intake: Oral 1080 Other: Voiding Method Toilet # Voids 3 1 # Bowel Movements 3 - Exam Abdomen: Soft, nondistended, minimal left lower quadrant tenderness - Labs CBC & Chem 7: 07/01/22 06:15 06/30/22 06:42 Labs: Abnormal Lab Results - Last 24 Hours (Table) 06/30/22 06/30/22 07/01/22 Range/Units 06:42 06:42 06:15 RBC 4.04 L (4.10-5.20) X 10*6/uL Hgb 10.3 L 10.5 L (12.0-15.0) g/dL Hct 33.6 L (37.2-46.3) % MCH 25.5 L (27.0-32.0) pg MCHC 30.7 L 29.0 L (32.0-37.0) g/dL Immature Gran # 0.06 H (0.00-0.04) X 10*3/uL Monocytes # 1.13 H (0.20-1.00) X 10*3/uL BUN 4.4 L (9.0-27.0) mg/dL BUN/Creatinine Ratio 7.24 L (12.00-20.00) Ratio Calcium 8.3 L (8.7-10.3) mg/dL Microbiology - Last 24 Hours (Table) 06/28/22 14:00 Blood Culture - Preliminary Blood No Growth after 48 hours 06/28/22 14:15 Blood Culture - Preliminary Blood No Growth after 48 hours Assessment and Plan (1) Perforation of sigmoid colon due to diverticulitis Narrative/Plan: Patient continues to improve. Advance diet to low fiber dysphagia diet. If tolerates possible discharge later today on antibiotics per infectious disease. Current Visit: Yes Status: Acute Code(s): K57.20 - DVTRCLI OF LG INT W PERFORATION AND ABSCESS W/O BLEEDING SNOMED Code(s): 2909779759984317
--- NOTE | 2022-07-01 12:38 | P.PN ---
Subjective This is a pleasant 47 years old female with past medical history of diverticulosis,. Presents with abdominal pain secondary to locally contained pe rforated diverticulitis of the sigmoid colon, currently has been followed by surgery primary team and infectious disease. And she's been covered with broad- spectrum antibiotics with cefepime and oral Flagyl, normal saline 75 L/h. Today patient was walking in her home appropriately with no difficulties eating improvement. She had 2 small bowel movement, her abdominal pain down to 4/10. No vomiting but she tolerates liquid diet although she developed some mild abdominal discomfort within 30 minutes after a meal. Patient looks satisfied and He was a progress she is making, patient states she anticipates to be discharged tomorrow. Patient denies any other complaints, and no urinary complaints, no chest pain or dyspnea, no headache weakness or numbness. BACK to normal today at 8.9, hemoglobin is stable at 10.3, BMP reviewed. 07/01/2022 Patient continued to improve and she feels better. She tolerates a liquid diet She had a small bowel movement yesterday and 1 in She reports her abdominal pain less than 3/10 which is improving. She denies nausea vomiting. No other new symptoms, no chest pain or dyspnea on headache or weakness. Her hemoglobin is stable at 10.5, WBC count 6.3 Kevin cefepime and IV Flagyl and normal saline 75 mL/h Patient looks more medically stable today Objective - Vital Signs Vital signs: Vital Signs Temp 97.9 F 07/01/22 08:00 Pulse 77 07/01/22 08:00 Resp 18 07/01/22 08:00 BP 143/92 07/01/22 08:00 Pulse Ox 98 07/01/22 08:00 FiO2 Intake & Output 06/30/22 07/01/22 07/01/22 18:59 06:59 18:59 Intake Total 1080 Balance 1080 Intake: Oral 1080 Other: Voiding Method Toilet # Voids 3 1 # Bowel Movements 3 - Exam GENERAL: The patient is alert and oriented x3, not in any acute distress. Well developed, well nourished. HEENT: Pupils are round and equally reacting to light. EOMI. No scleral icterus. No conjunctival pallor. Normocephalic, atraumatic. No pharyngeal erythema. No thyromegaly. CARDIOVASCULAR: S1 and S2 present. No murmurs, rubs, or gallops. PULMONARY: Chest is clear to auscultation, no wheezing or crackles. -ABDOMEN: Soft, mild LL acute tenderness, nondistended, normoactive bowel sounds. No palpable organomegaly. MUSCULOSKELETAL: No joint swelling or deformity. EXTREMITIES: No cyanosis, clubbing, or pedal edema. NEUROLOGICAL: Gross neurological examination did not reveal any focal deficits. SKIN: No rashes. no petechiae. - Labs CBC & Chem 7: 07/01/22 06:15 06/30/22 06:42 Labs: Abnormal Lab Results - Last 24 Hours (Table) 07/01/22 Range/Units 06:15 Hgb 10.5 L (11.4-16.0) gm/dL MCHC 29.0 L (31.0-37.0) g/dL Microbiology - Last 24 Hours (Table) 06/28/22 14:00 Blood Culture - Preliminary Blood No Growth after 48 hours 06/28/22 14:15 Blood Culture - Preliminary Blood No Growth after 48 hours Assessment and Plan Assessment: Locally contained perforated diverticulitis of the sigmoid colon, improving Obesity with BMI 42.4 Plan: continue with antibiotic, cefepime and oral Flagyl Continue with normal saline Advanced diet as tolerated per surgery team Surgical and infectious disease team R following the case closely Labs and medication were reviewed.. Continue same treatment. Continue with symptomatic treatment. Resume home medication. Monitor labs and vitals. DVT and GI prophylaxis. Further recommendations as per clinical course of the patient DVT prophylaxis: Subcutaneous heparin GI Prophylaxis: Ppi Recommend patient follow up with PCP in one week after discharge and she was instructed with the same
[2022-07-01 14:37] VITALS: BP 153/98; PULSE 79; TEMP 98.1
--- NOTE | 2022-07-01 15:42 | P.PN ---
Subjective Progress Note Date: 07/01/22 Principal diagnosis: Recurrent diverticulitis Patient is a 47-year-old female with a past medical history significant for an episode of diverticulitis about 8 months ago, treated medically subsequently did have colonoscopy with evidence of diverticulosis presenting to the hospital with another episode of diverticulitis and contained perforation with evidence of any abscess patient is ALLERGIC to Augmentin. On today's evaluation that is 07/01/2022, the patient remains to be afebrile, the patient Abdominal pain has decreased intensity and the patient has been tolerating her diet, no nausea or vomiting and no chest pain shortness of breath or cough Objective - Vital Signs Vital signs: Vital Signs Temp 97.9 F 07/01/22 08:00 Pulse 77 07/01/22 08:00 Resp 18 07/01/22 08:00 BP 143/92 07/01/22 08:00 Pulse Ox 98 07/01/22 08:00 FiO2 Intake & Output 06/30/22 07/01/22 07/01/22 18:59 06:59 18:59 Intake Total 1080 Balance 1080 Intake: Oral 1080 Other: Voiding Method Toilet # Voids 3 1 # Bowel Movements 3 - Exam GENERAL DESCRIPTION: A middle-aged female lying in bed in no distress RESPIRATORY SYSTEM: Unlabored breathing , decreased breath sounds at bases HEART: S1 S2 regular rate and rhythm , ABDOMEN: Soft , no tenderness EXTREMITIES: No edema feet - Labs CBC & Chem 7: 07/01/22 06:15 06/30/22 06:42 Labs: Abnormal Lab Results - Last 24 Hours (Table) 07/01/22 Range/Units 06:15 Hgb 10.5 L (11.4-16.0) gm/dL MCHC 29.0 L (31.0-37.0) g/dL Microbiology - Last 24 Hours (Table) 06/28/22 14:00 Blood Culture - Preliminary Blood No Growth after 48 hours 06/28/22 14:15 Blood Culture - Preliminary Blood No Growth after 48 hours Assessment and Plan (1) Perforation of sigmoid colon due to diverticulitis Status: Acute Code(s): K57.20 - DVTRCLI OF LG INT W PERFORATION AND ABSCESS W/O BLEEDING SNOMED Code(s): 2833784327104868 Plan: 1patient presented to hospital with abdominal pain has been diagnosed with comp licated diverticulitis with small contained perforation but no definite abscess will need to call for the enteric gram-negative both aerobes and anaerobes this being her second episode. 2patient with penicillin allergy that would limit the number of antibiotics safe to use. 3 patient seemed to have shown clinical improvement with cefepime and Flagyl and patient has been cleared for discharge by surgery prescription for oral Ceftin and Flagyl has been sent to the pharmacy with instructions about the diet questions and concerns were answered Time with Patient: Less than 30
== END 2022-07-01 15:23 | disposition home or self-care (01) | DRG 392 ==
LOC: EC 11:23 → 4SSUR 14:22
PROVIDERS: ADMIT Surgery; ATTEND Surgery
DX: K57.20 Diverticulitis of large intestine with perforation and abscess without bleeding (principal); E87.1 Hypo-osmolality and hyponatremia; Z68.41 Body mass index [BMI] 40.0-44.9, adult; E66.9 Obesity, unspecified; Z88.1 Allergy status to other antibiotic agents; Z91.018 Allergy to other foods; Z88.0 Allergy status to penicillin; Z90.49 Acquired absence of other specified parts of digestive tract
CPT/HCPCS: 36415; 74177; 80048; 80053; 81001; 82150; 83605; 83690; 85025; 87040; 96361; 96365; 96366; 96367; 96375; 99285

== ENCOUNTER 2022-07-09 09:55 | Emergency (ER) | payer BC ==
[2022-07-09 11:13] VITALS: BP 157/91; PULSE 71; RESP 16; TEMP 97.8
--- NOTE | 2022-07-09 11:52 | ED ---
General Adult HPI - General Chief complaint: Skin/Abscess/Foreign Body Stated complaint: hives - allergic reaction to rx Source: patient Mode of arrival: ambulatory Limitations: no limitations - History of Present Illness Initial comments: 47 year old female with a PMH of diverticulitis presents to the emergency department with a chief complaint of allergic reaction. She was seen here a week ago for diverticulitis and upon discharge was given Ceftin and Flagyl. This is day 7 of taking the ABX. She reports that her hands have been itching and she had hives all over her body. She called the on-call Infectious disease doctor who recommend she be seen here. She denies cough, shortness of breath, scratchy throat, cough, fevers, abdominal pain, nausea, vomiting, diar carlos. - Related Data Home Medications Medication Instructions Recorded Confirmed Multivitamins, Thera [Multivitamin 1 tab PO DAILY 06/28/22 06/28/22 (formulary)] Previous Rx's Medication Instructions Recorded cefUROXime axetiL [Ceftin] 500 mg PO BID 14 Days #28 tab 07/01/22 metroNIDAZOLE [Flagyl] 500 mg PO TID #42 tab 07/01/22 Ciprofloxacin HCl [Cipro] 500 mg PO Q12HR #20 tablet 07/09/22 Allergies Allergy/AdvReac Type Severity Reaction Status Date / Time amoxicillin [From Augmentin] Allergy Rash/Hives Verified 07/09/22 11:10 clavulanic acid Allergy Rash/Hives Verified 07/09/22 11:10 [From Augmentin] cookie Allergy Swelling Verified 07/09/22 11:10 mouth & mouth sores Review of Systems ROS Statement: Those systems with pertinent positive or pertinent negative responses have been documented in the HPI. ROS Other: All systems not noted in ROS Statement are negative. Past Medical History Past Medical History: No Reported History Additional Past Medical History / Comment(s): diverticulits History of Any Multi-Drug Resistant Organisms: None Reported Past Surgical History: Section, Cholecystectomy Additional Past Surgical History / Comment(s): perferated diverticuli Past Anesthesia/Blood Transfusion Reactions: No Reported Reaction Past Psychological History: No Psychological Hx Reported Smoking Status: Never smoker Past Alcohol Use History: Occasional Past Drug Use History: None Reported General Exam Limitations: no limitations General appearance: alert, in no apparent distress Head exam: Present: atraumatic, normocephalic, normal inspection Eye exam: Present: normal appearance, PERRL, EOMI. Absent: scleral icterus, conjunctival injection, periorbital swelling ENT exam: Present: normal exam, mucous membranes moist Neck exam: Present: normal inspection. Absent: tenderness, meningismus, lymphadenopathy Respiratory exam: Present: normal lung sounds bilaterally. Absent: respiratory distress, wheezes, rales, rhonchi, stridor Cardiovascular Exam: Present: regular rate, normal rhythm, normal heart sounds. Absent: systolic murmur, diastolic murmur, rubs, gallop, clicks GI/Abdominal exam: Present: soft, normal bowel sounds. Absent: distended, tenderness, guarding, rebound, rigid Extremities exam: Present: normal inspection, full ROM, normal capillary refill. Absent: tenderness, pedal edema, joint swelling, calf tenderness Back exam: Present: normal inspection Neurological exam: Present: alert, oriented X3, CN II-XII intact Psychiatric exam: Present: normal affect, normal mood Skin exam: Present: warm, dry, intact, normal color. Absent: rash Course Vital Signs 07/09/22 11:10 Temperature 97.8 F Pulse Rate 71 Respiratory 16 Rate Blood Pressure 157/91 O2 Sat by Pulse 99 Oximetry Medical Decision Making - Medical Decision Making Was pt. sent in by a medical professional or institution (, PA, SPECIAL DAY CLASS TEACHER, urgent care, hospital, or [facility]...) When possible be specific @ -[No] Did you speak to anyone other than the patient for history (EMS, parent, family, police, friend...)? What history was obtained from this source @ -[No] Did you review nursing and triage notes (agree or disagree)? Why? @ -[I reviewed and agree with nursing and triage notes] Were old charts reviewed (outside hosp., previous admission, EMS record, old EKG, old radiological studies, urgent care reports/EKG's, [facility] records)? Report findings @ -[No old charts were reviewed] Differential Diagnosis (chest pain, altered mental status, abdominal pain women, abdominal pain men, vaginal bleeding, weakness, fever, dyspnea, syncope, headache, dizziness, GI bleed, back pain, seizure, CVA, palpatations, mental health)? @ -[not applicable] EKG interpreted by me (3pts min.). @ -[As above] X-rays interpreted by me (1pt min.). @ -[None done] CT interpreted by me (1pt min.). @ -[None done] U/S interpreted by me (1pt. min.). @ -[None done] What testing was considered but not performed or refused? (CT, X-rays, U/S, labs)? Why? @ -[None] What meds were considered but not given or refused? Why? @ -[None] Did you discuss the management of the patient with other professionals (professionals i.e. , PA, SPECIAL DAY CLASS TEACHER, lab, RT, psych nurse, social media executive, dehydrator tender, teacher, chief security and safety officer, family service caseworker)? Give summary @ -[No] Was smoking cessation discussed for >3mins.? @ -[No] Was critical care preformed (if so, how long)? @ -[No] Were there social determinants of health that impacted care today? How? (Homelessness, low income, unemployed, alcoholism, drug addiction, tra nsportation, low edu. Level, literacy, decrease access to med. care, [facility], rehab)? @ -[No] Was there de-escalation of care discussed even if they declined (Discuss DNR or withdrawal of care, Hospice)? DNR status @ -[No] What co-morbidities impacted this encounter? (DM, HTN, Smoking, COPD, CAD, Cancer, CVA, ARF, Chemo, Hep., AIDS, mental health diagnosis, sleep apnea, morbid obesity)? @ -[None] Was patient admitted / discharged? Hospital course, mention meds given and route, prescriptions, significant lab abnormalities, going to OR and other pertinent info. @ -47-year-old female presents to the emergency department for medication reaction. She was recently discharged from this facility for perforated diverticulitis and started on Ceftin and Flagyl. He is after taking Ceftin she reports having itchy hands and a rash. She stopped taking Ceftin and with relief of her symptoms. Patient has essentially unremarkable physical exam. Patient was given a prescription for Cipro(for 10 days. With recommend follow-up with her primary care in 1-2 days. Undiagnosed new problem with uncertain prognosis? @ -medication re-fill Drug Therapy requiring intensive monitoring for toxicity (Heparin, Nitro, Insulin, Cardizem)? @ -[No] Were any procedures done? @ -[No] Diagnosis/symptom? @ -medication refill Acute, or Chronic, or Acute on Chronic? @ -acute Uncomplicated (without systemic symptoms) or Complicated (systemic symptoms)? @ -uncomplicated Side effects of treatment? @ -Abdominal pain, nausea, vomiting Exacerbation, Progression, or Severe Exacerbation? @ -[No] Poses a threat to life or bodily function? How? (Chest pain, [place], [place], pneumonia, PE, COPD, DKA, ARF, appy, cholecystitis, CVA, Diverticulitis, Homicidal, Suicidal, threat to staff... and all critical care pts) @ -[No] Disposition Clinical Impression: Allergic reaction to drug Disposition: HOME SELF-CARE Condition: Stable Instructions (If sedation given, give patient instructions): General Allergic Reaction (ED) Prescriptions: Ciprofloxacin HCl [Cipro] 500 mg PO Q12HR #20 tablet Is patient prescribed a controlled substance at d/c from ED?: No Referrals: Jigar Dumont MD [Primary Care Provider] - 1-2 days Time of Disposition: 13:35 Decision Time: 13:34
== END 2022-07-09 13:47 | disposition home or self-care (01) ==
LOC: EC 09:55
DX: L50.9 Urticaria, unspecified (principal); L29.9 Pruritus, unspecified; T36.1X5A Adverse effect of cephalosporins and other beta-lactam antibiotics, initial encounter; Z88.0 Allergy status to penicillin; Z88.8 Allergy status to other drugs, medicaments and biological substances; Z91.018 Allergy to other foods
CPT/HCPCS: 99282

== ENCOUNTER → 2024-04-10 | Outpatient (CLI) | payer BC, OTHER ==
--- NOTE | 2024-04-10 11:07 | CT ---
EXAMINATION TYPE: CT right knee - [facility] Protocol DATE OF EXAM: 04/10/2024 COMPARISON: None HISTORY: Unilateral primary osteoarthritis, right knee, [facility] protocol CT DLP: 1613 mGycm TECHNIQUE- CT of the right knee. FINDINGS- There is moderate to severe medial compartment and moderate lateral and patellofemoral compartment ar thropathy with marginal spurring but no erosive changes. Cystic changes involving the proximal tibia likely related to benign geode. Small suprapatellar bursal fluid collection. Ankle mortise is maintained. Tiny bony densities along the medial malleolus bilaterally are too small to characterize. There is mild hypertrophic hip arthropathy bilaterally which can be associated with femoral acetabula r impingement. IMPRESSION: 1. Tricompartment joint osteoarthritis most marked involving the medial compartment [facility], , 04/10/2024 11:04 AM
== END | disposition home or self-care (01) ==
LOC: RADCTMAIN 07:57
PROVIDERS: ATTEND Orthopaedic Surgery
DX: M17.11 Unilateral primary osteoarthritis, right knee (principal); Z68.39 Body mass index [BMI] 39.0-39.9, adult

== ENCOUNTER → 2024-04-18 | Outpatient (CLI) | payer OTHER ==
--- NOTE | 2024-04-18 14:56 | CT ---
INDICATION: Patient age:Female; 49 years old; Reason for study: [facility] Protocol for right knee replacement, M17.11 UNILATERAL PRIMARY OSTEOARTHRITIS, R M25.561; [facility]. COMPARISON: CT right knee 04/10/2024 TECHNIQUE: Thin section axial CT imaging of the entire right lower extremity was performed per [facility] protocol, wi thout the administration of IV contrast. Additional axial images of the bilateral hips and ankles wit h other knee were also obtained. Reformatted images in coronal and sagittal views obtained. FINDINGS: There is no evidence of acute fracture or dislocation. The hips show bilateral mild osteoarthritic change with subchondral cystic formation and joint space narrowing. The right knee demonstrate a small suprapatellar joint effusion. Moderate to severe medial compartmen t and moderate lateral and patellar femoral compartment arthropathy with marginal spurring. No erosiv e changes. Subchondral cystic changes involving the proximal tibia likely related to benign geode. The ankles grossly unremarkable. Stable tiny calcification along the medial malleolus bilaterally whi ch are too small to characterize. The visualized soft tissues appear grossly unremarkable within the limits of unenhanced CT. Few sigmo id diverticula. IMPRESSION: [facility] protocol for right knee joint replacement as described above. [facility], , 04/18/2024 2:36 PM
== END | disposition home or self-care (01) ==
LOC: RADCTMAIN 13:55
PROVIDERS: ATTEND Orthopaedic Surgery
DX: Z53.9 Procedure and treatment not carried out, unspecified reason (principal)

== ENCOUNTER 2024-06-03 12:45 | Emergency (ER) | payer BC, OTHER ==
[2024-06-03 13:01] VITALS: RESP 18
--- NOTE | 2024-06-03 13:25 | ED ---
ENT HPI - General Chief complaint: ENT Stated complaint: nose bleed Time Seen by Provider: 06/03/24 13:02 Source: patient Mode of arrival: ambulatory Limitations: no limitations - History of Present Illness Initial comments: This is a 49-year-old female presenting with epistaxis. Patient states bleeding started suddenly. Endorses use of Eliquis following TKR due to history of antiphospholipid syndrome. Patient denies dizziness, orthostasis, lightheadedness, AMS, ALOC. MD complaint: epistaxis Onset/Timin -: hour(s) Location: nose - Related Data Home Medications Medication Instructions Recorded Confirmed Multivitamins, Thera [Multivitamin 1 tab PO DAILY 06/28/22 06/28/22 (formulary)] Previous Rx's Medication Instructions Recorded cefuroxime axetiL [Ceftin] 500 mg PO BID 14 Days #28 tab 07/01/22 metroNIDAZOLE [Flagyl] 500 mg PO TID #42 tab 07/01/22 Ciprofloxacin HCl [Cipro] 500 mg PO Q12HR #20 tablet 07/09/22 Allergies Allergy/AdvReac Type Severity Reaction Status Date / Time amoxicillin [From Augmentin] Allergy Rash/Hives Verified 06/03/24 13:01 clavulanic acid Allergy Rash/Hives Verified 06/03/24 13:01 [From Augmentin] cookie Allergy Swelling Verified 06/03/24 13:01 mouth & mouth sores Review of Systems ROS Statement: Those systems with pertinent positive or pertinent negative responses have been documented in the HPI. ROS Other: All systems not noted in ROS Statement are negative. Past Medical History Past Medical History: No Reported History Additional Past Medical History / Comment(s): diverticulits History of Any Multi-Drug Resistant Organisms: None Reported Past Surgical History: Section, Cholecystectomy Additional Past Surgical History / Comment(s): perferated diverticuli, right knee 2023 Past Anesthesia/Blood Transfusion Reactions: No Reported Reaction Past Psychological History: No Psychological Hx Reported Smoking Status: Never smoker Past Alcohol Use History: Occasional Past Drug Use History: None Reported General Exam Limitations: no limitations General appearance: alert, in no apparent distress Head exam: Present: atraumatic, normocephalic, normal inspection Eye exam: Present: normal appearance, PERRL, EOMI. Absent: scleral icterus, conjunctival injection, periorbital swelling ENT exam: Present: normal exam, mucous membranes moist, other (Dried blood and blood clots noted in bilateral nares without active bleeding) Neck exam: Present: normal inspection. Absent: tenderness, meningismus, lymphadenopathy Respiratory exam: Present: normal lung sounds bilaterally. Absent: respiratory distress, wheezes, rales, rhonchi, stridor Cardiovascular Exam: Present: regular rate, normal rhythm, normal heart sounds. Absent: systolic murmur, diastolic murmur, rubs, gallop, clicks GI/Abdominal exam: Present: soft, normal bowel sounds. Absent: distended, tenderness, guarding, rebound, rigid Extremities exam: Present: normal inspection, full ROM, normal capillary refill. Absent: tenderness, pedal edema, joint swelling, calf tenderness Back exam: Present: normal inspection Neurological exam: Present: alert, oriented X3, CN II-XII intact Psychiatric exam: Present: normal affect, normal mood Skin exam: Present: warm, dry, intact, normal color. Absent: rash Course Vital Signs 06/03/24 06/03/24 12:56 13:38 Temperature 98 F 98.7 F Pulse Rate 77 75 Respiratory 18 18 Rate Blood Pressure 133/77 127/85 O2 Sat by Pulse 99 100 Oximetry Medical Decision Making - Medical Decision Making Was pt. sent in by a medical professional or institution (, PA, SPRAY DRIER OPERATOR, urgent care, hospital, or long-term...) When possible be specific @ -No Did you speak to anyone other than the patient for history (EMS, parent, family, police, friend...)? What history was obtained from this source @ -No Did you review nursing and triage notes (agree or disagree)? Why? @ -I reviewed and agree with nursing and triage notes Were old charts reviewed (outside hosp., previous admission, EMS record, old EKG, old radiological studies, urgent care reports/EKG's, long-term records)? Report findings @ -No old charts were reviewed Differential Diagnosis (chest pain, altered mental status, abdominal pain women, abdominal pain men, vaginal bleeding, weakness, fever, dyspnea, syncope, headache, dizziness, GI bleed, back pain, seizure, CVA, palpatations, mental health, musculoskeletal)? @ -Epistaxis, posterior epistaxis, sinusitis, nasal polyp, URI, localized trauma, this is not an exhaustive list. EKG interpreted by me (3pts min.). @ -Not done X-rays interpreted by me (1pt min.). @ -None done CT interpreted by me (1pt min.). @ -None done U/S interpreted by me (1pt. min.). @ -None done What testing was considered but not performed or refused? (CT, X-rays, U/S, labs)? Why? @ -None What meds were considered but not given or refused? Why? @ -None Did you discuss the management of the patient with other professionals (professionals i.e. DrMary, PA, SPRAY DRIER OPERATOR, lab, RT, psych nurse, social sciences professor, form setter/driver, teacher, access control officer, case managers)? Give summary @ -No Was smoking cessation discussed for >3mins.? @ -No Was critical care preformed (if so, how long)? @ -No Were there social determinants of health that impacted care today? How? (Homelessness, low income, unemployed, alcoholism, drug addiction, transportation, low edu. Level, literacy, decrease access to med. care, [facility], rehab)? @ -No Was there de-escalation of care discussed even if they declined (Discuss DNR or withdrawal of care, Hospice)? DNR status @ -No What co-morbidities impacted this encounter? (DM, HTN, Smoking, COPD, CAD, Cancer, CVA, ARF, Chemo, Hep., AIDS, mental health diagnosis, sleep apnea, morbid obesity)? @ -Use of Eliquis for antiphospholipid syndrome Was patient admitted / discharged? Hospital course, mention meds given and route, prescriptions, significant lab abnormalities, going to OR and other pertinent info. @ -Patient advised to blow nose and clear blood clots, then provided Afrin nasal spray and nasal clamp applied for 20 minutes. Epistaxis remains resolved. Patient provided remaining Afrin nasal spray and advised to reuse if necessary followed by nasal clamp for 20 minutes. Advised return to ER if bleeding persist. Undiagnosed new problem with uncertain prognosis? @ -No Drug Therapy requiring intensive monitoring for toxicity (Heparin, Nitro, Insulin, Cardizem)? @ -No Were any procedures done? @ -No Diagnosis/symptom? @ -Anterior epistaxis Acute, or Chronic, or Acute on Chronic? @ -Acute Uncomplicated (without systemic symptoms) or Complicated (systemic symptoms)? @ -Uncomplicated Side effects of treatment? @ -No Exacerbation, Progression, or Severe Exacerbation? @ -No Poses a threat to life or bodily function? How? (Chest pain, [place], [place], pneumonia, PE, COPD, DKA, ARF, appy, cholecystitis, CVA, Diverticulitis, Homicidal, Suicidal, threat to staff... and all critical care pts) @ -No Disposition Clinical Impression: Epistaxis Disposition: HOME SELF-CARE Condition: Good Instructions (If sedation given, give patient instructions): Nosebleed (ED) Is patient prescribed a controlled substance at d/c from ED?: No Referrals: Jigar Dumont MD [Primary Care Provider] - 1-2 days Time of Disposition: 13:25
[2024-06-03] MEDS: OXYMETAZOLINE 0.05% NASL SPRAY 1 SPRAY BOTTLE NASAL STA (13:36)
[2024-06-03 13:49] VITALS: BP 127/85; PULSE 75; TEMP 98.7
== END 2024-06-03 13:49 | disposition home or self-care (01) ==
LOC: EC 12:45
DX: R04.0 Epistaxis (principal); D68.61 Antiphospholipid syndrome; Z79.01 Long term (current) use of anticoagulants; Z88.0 Allergy status to penicillin; Z88.1 Allergy status to other antibiotic agents; Z91.018 Allergy to other foods
CPT/HCPCS: 99283